=== PATIENT | male | born 1935 | race Caucasian/White ===

== ENCOUNTER 2017-01-01 00:57 | Emergency (ER) | payer OTHER ==
[~2017-01-01] VITALS: Ht 185.4 cm; Wt 85.3 kg
[~2017-01-01 00:57] MED LIST: DIGOXIN125 MCG PO; LISINOPRIL2.5 MG PO; LOVASTATIN20 MG PO; METOPROLOL SUCC50 MG PO; NASAL MOISTURIZ88 ML; PRADAXA75 MG PO; TORADOL10 MG PO; VESICARE10 MG PO
[2017-01-01 03:20] VITALS: BP 118/66
== END 2017-01-01 03:20 | disposition home or self-care (01) ==
LOC: EME 00:57 → EXP 00:57
PROC: 0HQNXZZ Repair Left Foot Skin, External Approach (ICD-10-PCS; principal; 2017-01-01)
DX: S91.312A Laceration without foreign body, left foot, initial encounter (principal); W10.9XXA Fall (on) (from) unspecified stairs and steps, initial encounter; Z79.01 Long term (current) use of anticoagulants
CPT/HCPCS: 73630; 99281; 99284; S0020